=== PATIENT | female | born 2000 | race Caucasian/White ===

== ENCOUNTER 2021-01-31 12:58 | Outpatient (CLI) | payer BC, SELFPAY ==
--- NOTE | ~2021-01-31 | US_ITS ---
EXAMINATION: US OB /maternal detail EXAM DATE: 01/31/2021 13:41 INDICATION: anatomy scan. 2nd trimester. TECHNIQUE: Pelvic obstetrical transabdominal sonogram was performed by a technologist. There are mu ltiple grayscale and Doppler images available for interpretation. There are no earlier studies of th is gestation for comparison. FINDINGS: There is a single fetus identified in variable presentation with a heart rate of 140 beats per minute. The placenta is located in the fundal position. There is no sonographic evidence of retr oplacental hemorrhage identified. There is subjectively expected amount of amniotic fluid. BIOMETRIC DATA: Biparietal diameter (BPD): 4.4 cm ----------------> 19 weeks 1 day. Head circumference (HC): 16.6 cm ----------------> 19 weeks 2 days. Abdominal circumference (AC): 14.5 cm ----------> 19 weeks 6 days. Femur length (FL): 3.0 cm --------------------------> 19 weeks 1 day. These measurements are concordant. HC/AC ratio is 1.14 (The 5th -- 95th percentile range is 1.08-1.26. Estimated weight is 294 g +/- 44 g. This is the 25th percentile when the currently reported cl inical gestation age 19 weeks 6 days, clinical estimated date of delivery (FABIAN-OPE) 06/21/2021 is used . estimated gestational age based on measurements from this exam is 19 weeks 3 days, with an es timated date of delivery (FABIAN-AUA) 06/24. ANATOMIC SURVEY: The following anatomy is identified and is sonographically normal in appearance: Cerebral ventricles Cerebellum Cisterna magna Cavum septum callosum Nuchal fold CTL-spine Four-chamber heart Ventricular outflow tracts Diaphragm Stomach Kidneys Bladder Three-vessel cord Cord insertion Extremities Nose/lips IMPRESSION: 1. Single fetus in variable presentation with heart rate 140 beats per minute. 2. Estimated weight of 294 grams, 25th percentile using the currently reported clinical gestat ion age of 19 weeks 6 days, FABIAN(OPE) 06/21. 3. Normal anatomic survey. Reviewed, dictated and finalized at location G. IMPRESSION: 1. Single fetus in variable presentation with heart rate 140 beats per minute. 2. Estimated weight of 294 grams, 25th percentile using the currently re ported clinical gestation age of 19 weeks 6 days, FABIAN(OPE) 06/21. 3. Normal anatomic survey.
== END 2021-01-31 12:59 ==
LOC: MICIMG 13:00
PROVIDERS: Visit Provider Nurse Practitioner
DX: Z36.9 Encounter for antenatal screening, unspecified (principal); Z3A.19 19 weeks gestation of pregnancy
CPT/HCPCS: 76805

== ENCOUNTER 2021-03-28 12:37 | Outpatient (CLI) | payer BC, SELFPAY ==
--- NOTE | ~2021-03-28 | US_ITS ---
US abdomen complete EXAMINATION: US Abdomen Complete INDICATION: Abdominal pain PROCEDURE: Realtime High Resolution abdomen ultrasound. COMPARISON: No prior studies for comparison FINDINGS: Gallbladder within normal limits. No gallstones, pericholecystic fluid, gallbladder wall t hickening or biliary dilatation. Common bile duct measures 3 mm. Liver echotexture within normal limits without focal mass. Pancreas within normal limits. Pancreati c tail is obscured by bowel gas. Spleen is unremarkeable. There is mild right hydronephrosis. No gabo al mass or stone identified. Right kidney measures 10.8 cm. Left kidney measures 9.5 cm. Visualized aspects of the aorta and IVC are within normal limits. Portal vein is patent. No sonograph ic Justin's sign indicated by the technologist. IMPRESSION: 1: Mild right hydronephrosis. Reviewed, dictated and finalized at location A.
--- NOTE | ~2021-03-28 | US_ITS ---
EXAMINATION: US OB follow up DATE: 03/28/2021 13:17 INDICATION: Abdominal pain during second trimester TECHNIQUE: Real-time ultrasound of the pelvis was performed. The interpreting radiologist was not pre sent for the study. COMPARISON: 01/31/2021 FINDINGS: There is a single living fetus in vertex presentation. The placenta is posterior/fundal. Fe daisy cardiac activity and movement are noted. heart rate is 154 beats per minute (bpm). Th e amniotic fluid index is 12.4 cm which is normal. The following biometric data were obtained: Biparietal diameter (BPD): 7.0 cm; head circumference (HC): 25.5 cm; abdominal circumference (AC): 21 .8 cm; femur length (FL): 5.1 cm. These measurements are concordant. Estimated weight is 1007 g +/- 151 g, which correlates with the 12th percentile when 06/21/2021 is used as estimated date of delivery. As single measurements, these parameters are each equal to the following estimated gestational ages w ith ranges of +/- 2 standard deviations: BPD: 28 weeks 2 days ( 26 weeks 0 days - 30 weeks 3 days). HC: 27 weeks 5 days ( 25 weeks 5 days - 29 weeks 6 days). AC: 26 weeks 2 days ( 24 weeks 1 days - 28 weeks 4 days). FL: 27 weeks 3 days ( 25 weeks 2 days - 29 weeks 3 days). estimated gestational age based solely on measurements from this exam is 27 weeks 3 days +/- 1 weeks 6 days. IMPRESSION: 1. Single living fetus in vertex presentation. 2. Normal amniotic fluid index. 3. Estimated weight is 1007 g +/- 151 g, which correlates with the 12th percentile when 06/21/20 21 is used as estimated date of delivery. Reviewed, dictated and finalized at location B. IMPRESSION: 1. Single living fetus in vertex presentation. 2. Normal amniotic fluid index. 3. Estimated weight is 1007 g +/- 151 g, which correlates with the 12th p ercentile when 06/21/2021 is used as estimated date of delivery.
== END 2021-03-28 12:38 ==
LOC: MICIMG 12:38
PROVIDERS: PCP Physician Assistant; Visit Provider Physician Assistant
DX: O99.891 Other specified diseases and conditions complicating pregnancy (principal); R10.11 Right upper quadrant pain; Z3A.25 25 weeks gestation of pregnancy; N13.30 Unspecified hydronephrosis
CPT/HCPCS: 76700; 76816

== ENCOUNTER 2021-06-11 22:40 | Inpatient (IN) | payer BC, SELFPAY ==
[2021-06-12] VITALS (161 sets, daily range): BP systolic 80–142; BP diastolic 33–112; PULSE 72–146; RESP 18–20; TEMP 36.3–38.1; O2SAT 94–100; BMI 34.5
--- NOTE | 2021-06-12 01:21 | LDADM ---
This patient, Kristie Zepeda, was admitted to Labor/Delivery/Recovery 106 on 06/11/21 at 22:40. Plans for labor, pain management and were discussed with patient. Patient/family oriented to hospital policies and general routines including ID bracelet, bed and alarms, visiting hours, pain management, procedures, bathroom and other care routines, personal items, smoking policy, room service/diet and guest tray routines, security routines, and visiting hours. Patient/Family are encouraged to report perceived risks to care and to ask questions if they do not understand what they are told or what they should do. See OBIX for further documentation.
[2021-06-12] MEDS: LACTATED RINGERS 1,000 ML 125 ML IV CONT ×3 (01:31→09:05)
[2021-06-12] MEDS: AMPICILLIN 2 GM/NS 100 ML 2 GM/100 ML BAG IVPB (01:31)
[2021-06-12 01:36] LABS: Basophils Absolute Auto 0.1 K/mm3 (0.0-0.1); Basophils Percent Auto 0.3 % (0.2-1.2); Eosinophils Percent Auto 0.1 % (0-4.4); Hematocrit 37.1 % (37.0-47.0); Hemoglobin 12.5 g/dL (12.0-15.0); Immature Granulocyte Absolute 0.16 K/mm3 (0.00-0.031); Immature Granulocyte Percent A 0.8 % (0-0.5); Lymphocytes Absolute Auto 1.38 K/mm3 (0.9-3.2); Lymphocytes Percent Auto 7.1 % (18.3-44.2); Mean Corpuscular HGB Conc 33.7 g/dl (32-36); Mean Corpuscular Hemoglobin 29.1 pg (26-34); Mean Corpuscular Volume 86.3 fl (80-100); Mean Platelet Volume 10.1 fl (7.4-10.4); Monocytes Absolute Auto 1.4 K/mm3 (0.1-0.6); Monocytes Percent Auto 7.1 % (2.6-8.5); Neutrophils Absolute Auto 16.4 K/mm3 (1.3-6.7); Neutrophils Percent Auto 84.6 % (45.5-73.1); Platelet Count Result 261 k/mm3 (150-375); Red Cell Distribution Width 13.1 % (11.5-14.5); White Blood Count 19.3 K/mm3 (4.5-10.0)
--- NOTE | 2021-06-12 02:38 | WPDANESEPPF ---
Anes - Initial Pre Proc Eval Procedure: labor epidural Date/Time: 06/12/21 02:38 Surgeon: Arnoldo Herring MD Pre Op Diagnosis: contractions Patient Data Age: 21 Gender: F Height: 1.73 m Weight: 103 kg Last Vital Signs Temp 37.8 C H 06/12/21 01:30 Pulse 98 06/12/21 02:33 BP 131/75 06/12/21 02:33 Pulse Ox 100 06/12/21 02:35 Allergies Allergy/AdvReac Type Severity Reaction Status Date / Time No Known Allergies Allergy Verified 05/23/21 13:18 Home Medications Medication Instructions Recorded Confirmed Type PNV cmb#95-ferrous fumarate-FA 1 tablet PO DAILY 05/23/21 05/23/21 History [] ergocalciferol (vitamin D2) 1,250 mcg PO WEEKLY 05/23/21 05/23/21 History [Vitamin D2] ferrous sulfate 325 mg PO DAILY 05/23/21 05/23/21 History Laboratory Tests 06/12/21 06/12/21 01:28 01:28 WBC 19.3 K/mm3 H K/mm3 (4.5-10.0) RBC 4.30 M/mm3 M/mm3 (4.2-5.4) Hgb 12.5 g/dL g/dL (12.0-15.0) Hct 37.1 % % (37.0-47.0) MCV 86.3 fl fl (80-100) MCH 29.1 pg pg (26-34) MCHC 33.7 g/dl g/dl (32-36) RDW 13.1 % % (11.5-14.5) Plt Count 261 k/mm3 k/mm3 (150-375) MPV 10.1 fl fl (7.4-10.4) Immature Gran % (Auto) 0.8 % H % (0-0.5) Neut % (Auto) 84.6 % H % (45.5-73.1) Lymph % (Auto) 7.1 % L % (18.3-44.2) [place] % (Auto) 7.1 % % (2.6-8.5) Eos % (Auto) 0.1 % % (0-4.4) Baso % (Auto) 0.3 % % (0.2-1.2) Lymph # (Auto) 1.38 K/mm3 K/mm3 (0.9-3.2) [place] # (Auto) 1.4 K/mm3 H K/mm3 (0.1-0.6) Eos # (Auto) 0.0 K/mm3 K/mm3 (0-0.3) Baso # (Auto) 0.1 K/mm3 K/mm3 (0.0-0.1) Abs Immat Gran (auto) 0.16 K/mm3 H K/mm3 (0.00-0.031) Absolute Neuts (auto) 16.4 K/mm3 H K/mm3 (1.3-6.7) Absolute Nucleated RBC 0.0 K/mm3 K/mm3 (0.0-0.012) Nucleated RBC % 0.0 % % (0.0-0.2) RPR Pending Patient hx anesthesia problems: none Family hx anesthesia problems: none Results Review: All pre-operative results and documents have been reviewed as part of the pre-operative evaluation. [facility] Family History Family History Other No pertinent family history Social History Social History Years smoked: 1 Smoking status: Former smoker Tobacco type: cigarettes Substance use: former Spiritual care concerns: No Anes - Eval Final PreProcedure Day of Procedure 06/12/21 02:38 Patient weight: obese Heart: regular rate and rhythm Lungs: clear to auscultation and normal air movement Airway: Mallampati scale class II Neurological: alert and oriented ASA classification: II Emergent: no Anesthetic plan: proceed Anesthesia type and monitoring: regional epidural and standard monitoring Results Review: All pre-operative results and documents have been reviewed as part of the pre-operative evaluation. Informed Consent: The patient's anesthetic plan and its attendant risks and benefits were discussed with the patient/family/POA. Questions were solicited and answers provided to the satisfaction of the patient/family/POA.
[2021-06-12] MEDS: AMPICILLIN 1 GM/NS 50 ML 1 GM/50 ML BAG IVPB ×2 (05:30→09:25)
[2021-06-12] MEDS: ONDANSETRON INJ 4 MG/2 ML VIAL IV PUSH (08:39)
--- NOTE | 2021-06-12 10:12 | WPDOBADMIT ---
Obstetrics - Admit Note Admission Note: record reviewed. No pertinent additions to the history and/or any subsequent changes in the physical findings that are not consistent with the expected course of the were found. AROM clear fluid 8-9/100/-2 Additions to the history and/or subsequent changes in the physical findings follow. None.
[2021-06-12] MEDS: OXYTOCIN 30 UNITS/NS 500 ML 30 UNITS/500 ML BAG 999 UNITS IV CONT (10:48)
--- NOTE | 2021-06-12 11:13 | PM.OBPRVD ---
OB - Delivery Note Procedure Delivery date: 06/12/21 Procedure: Intrapartal events: None Delivery monitor: external FHT and external uterine Route of delivery: Delivery repair: vicryl Specimen: Yes Quantitative Blood Loss (ml): 330 Anesthesia type: Epidural Disposition: observation Baby Date of : 06/12/21 Time of : 10:43 Weeks of gestation at delivery: 38 gender: Female Weight (pounds): 6 Weight (ounces): 14 presentation: vertex position: Left Occiput Anterior Placenta delivery description: Spontaneous cord vessel description: 3 Vessels and Clamped/Cut score one minute: 7 score five minutes: 9
[2021-06-12] MEDS: OXYTOCIN 30 UNITS/NS 500 ML 30 UNITS/500 ML BAG 125 UNITS IV CONT (11:21)
[2021-06-12] MEDS: GENTAMICIN 80MG/SOD CHL 50 ML 80 MG/50 ML BAG 100 MG IVPB (11:50)
[2021-06-12] MEDS: IBUPROFEN 600 MG TABLET PO ×2 (12:35→18:55)
[2021-06-12] MEDS: BENZOCAINE 20% AER SPR (*SP) 56 GM CAN 1 SPRAY TOPICAL (12:36)
[2021-06-12] MEDS: WITCH HAZEL 40 PADS 1 PAD TOPICAL (12:36)
--- NOTE | 2021-06-12 13:30 | PC.NURSE ---
Patient transferred to post room #290 per wheelchair. Support person present. Oriented to unit, room, information board, rooming in, admission packet and security measures. Patient verbalizes understanding.
[2021-06-12] MEDS: LANOLIN (LANSINOH) 7.5 GM CREAM 1 APPLIC TOPICAL (17:00)
[2021-06-12] MEDS: DOCUSATE SODIUM 100 MG CAPSULE PO (17:00)
[2021-06-12] MEDS: ACETAMINOPHEN 325 MG TABLET 650 MG PO (18:02)
[2021-06-13] MEDS: IBUPROFEN 600 MG TABLET PO ×3 (04:40→19:05)
[2021-06-13 04:55] LABS: Hematocrit 33.8 % (37.0-47.0); Hemoglobin 11.1 g/dL (12.0-15.0)
[2021-06-13 06:12] LABS: Rapid Plasma Reagin Non-Reactive (NonReactive)
[2021-06-13 07:30] VITALS: BP 115/73; PULSE 84; RESP 16; TEMP 36.6; O2SAT 97
--- NOTE | 2021-06-13 08:10 | PC.NURSE ---
Mother called out for assist with feeding. Mother reports infant is unable to latch without nipple shield. Mother reports pain with feeding. Infant is able to freely thrust tongue past gum ridge and flange both lips. Both nipples have redness and left has a line with blistering and bruising. Nipple care reviewed of lanolin after feedings, warm compresses as needed, gel pads provided and reviewed care and cleaning. Reviewed feeding cues, frequencies, duration of feedings, feeding elimination flow sheet, and signs of adequate intake. Demonstrated stimulation techniques to wake for feeding. Assisted with to breast. Reviewed positioning/alignment in cross cradle, holding breast in ?U? hold and guided asymmetrical latch on. Reviewed rational for each. attempted without nipple shield. Infant is unable to draw nipple in and tends to suck on her tongue not dropping to allow correct latch. Discussed nipple shield use and how shield may assist with latch. Mother is willing to attempt using shield. Reviewed nipple shield precautions and possible complications. Instructions given on application and cleaning of shield. Patient able to return demonstration on proper application of shield. Discussed the need to initiate pumping if continues to nurse with the shield. Patient verbalizes understanding. With shield in place, was able to latch correctly after several attempts. nursed eagerly, with steady draws for short burst and would release nipple then noted sucking his tongue with nipple under tongue. Several times infant latched repeating short bursts and releasing latch. After several minutes, infant began nursing with a steady rhythmical draw and occasional swallowing noted. was able to maintain latch without discomfort to mother. Advised to stimulate to keep awake and nursing effectively for increased intake, increased stimulation and to assist iwth maintaining correct latch. Advised to hold breast during the entire feeding to assist with maintaining deep latch. Reviewed the difference of effective vs ineffective nursing. Suggested mother initiate pumping due to nipple shield use. Mother will states she will pump after next feeding.
[2021-06-13] MEDS: ACETAMINOPHEN 325 MG TABLET 650 MG PO ×3 (09:26→23:49)
[2021-06-13] MEDS: MULTIVIT/MIN/PREN/FOL AC/IRON TABLET 1 TAB PO (09:27)
--- NOTE | 2021-06-13 10:56 | P.PNOB_ITS ---
OB - PN: Subj Subjective Date/time seen: 06/13/21 10:56 doing well today no complaints OB - PN: Obj Data Labs CBC & Chem 7: 06/13/21 04:42 Labs: Laboratory Results - last 24 hr 06/12/21 06/13/21 01:28 04:42 Hgb 11.1 L Hct 33.8 L RPR Non-reactive OB - PN A/P Assessment and Plan (1) (normal spontaneous vaginal delivery): Code(s): O80 - Encounter for full-term uncomplicated delivery Status: Acute Assessment and Plan: continue with pp care. Time Spent With Patient Time: Total time spent is greater than 50% in coordination of care (as documente d) at patient's floor/unit and/or counseling patient: Exam Narrative: ff below umbilicus
--- NOTE | 2021-06-13 11:04 | WPDANLDPN2 ---
Anes-Prog Note L&D Date/Time: 06/13/21 11:04 Comfortable throughout: labor and delivery Neuraxial method: epidural Epidural/Spinal procedure site: clean & non-tender Neuro status: Neuro function grossly intact. Cardiovascular status: normal Respiratory status: normal Airway patency: baseline Mental status: baseline Post-Op hydration status: normal Vital Signs: Last Vital Signs Temp 97.9 F 06/13/21 07:30 Pulse 84 06/13/21 07:30 Resp 16 06/13/21 07:30 BP 115/73 06/13/21 07:30 Pulse Ox 97 06/13/21 07:30 Pain score (VAS): 2 Post-procedural complaints: none Patient feedback: Patient satisfied with anesthetic care.
--- NOTE | 2021-06-13 12:05 | PC.NURSE ---
Mother called out for assist with feeding. Reviewed feeding cues, frequencies, duration of feedings, feeding elimination flow sheet, and signs of adequate intake. Demonstrated stimulation techniques to wake infant for feeding. Assisted with infant to breast. Reviewed positioning/alignment in cross cradle, holding breast in ?U? hold and guided asymmetrical latch on. Reviewed rational for each. With shield in place, infant was able to latch correctly after several attempts. Infant nursed eagerly, with steady draws for short burst and would release nipple. eager to return to breast and more eager this feeding than last. After several minutes, infant began nursing with a steady rhythmical draw and occasional swallowing noted. was able to maintain latch without discomfort to mother. Advised to stimulate to keep awake and nursing effectively for increased intake, increased stimulation and to assist with maintaining correct latch. Advised to hold breast during the entire feeding to assist with maintaining deep latch.
--- NOTE | 2021-06-13 12:35 | PC.NURSE ---
Breast pump provided due to nursing using nipple shield. Instructions given on breast pump care and usage, pumping schedule, nipple care, and collection and storage of breast milk. Encouraged [id number], breast massage and manual expression to stimulate supply. Assessed patient for correct flange size, placement and draw. Patient verbalizes and demonstrates understanding of instructions. Discussed colostrum vs milk supply and mother may not see more than a few drops the first few days, milk should transition in by day 3 and she may see more volume pumped per session. Plan is for mother to pump after each feeding using the nipple shield.
[2021-06-13 15:00] VITALS: BP 109/72; PULSE 81; RESP 16; TEMP 36.9; O2SAT 99
[2021-06-13 19:05] VITALS: BP 116/74; PULSE 74; RESP 18; TEMP 37
--- NOTE | 2021-06-13 19:05 | PC.NURSE ---
Patient viewed the discharge video Mother & Baby Care, The First Two Weeks online. Patient was given the opportunity and encouraged to ask questions. Patient verbalized understanding of information shared and has been given the mother/baby guide for home reference.
[2021-06-14] MEDS: IBUPROFEN 600 MG TABLET PO ×2 (01:50→11:15)
[2021-06-14] MEDS: ACETAMINOPHEN 325 MG TABLET 650 MG PO (07:47)
[2021-06-14 08:15] VITALS: BP 115/82; PULSE 73; RESP 18; TEMP 36.7; O2SAT 100
--- NOTE | 2021-06-14 10:20 | PM.OBPNVD ---
OB - PN: Subj Subjective Date/time seen: 06/14/21 10:20 doing well no complaints OB - PN: Obj Data Labs CBC & Chem 7: 06/13/21 04:42 OB - PN A/P Assessment and Plan (1) (normal spontaneous vaginal delivery): Code(s): O80 - Encounter for full-term uncomplicated delivery Status: Acute Assessment and Plan: d/c home Time Spent With Patient Time: Total time spent is greater than 50% in coordination of care (as documented) at patient's floor/unit and/or counseling patient: Exam Narrative: ff below umbilicus
[2021-06-14] MEDS: MULTIVIT/MIN/PREN/FOL AC/IRON TABLET 1 TAB PO (11:16)
[2021-06-16 09:37] VITALS: BP 122/73; PULSE 84; RESP 20; TEMP 36.9; O2SAT 100
--- NOTE | 2021-06-27 11:31 | PM.OBDSVD ---
DS: Admitting Diagnosis Discharge Date 06/14/21 Admitting Diagnosis labor OB - DS: Summary OB Procedures : Ultrasound OB Procedures Intrapartum: Spontaneous Vag Delivery OB Procedures: : None Time Spent with Patient Time attestation: Total time spent providing and/or coordinating discharge services: DS: Data Data Completed and Pending Completed studies during hospitalization: Pending at discharge 06/16/21 07:48 Surgical [PTH] Routine Discharge Plan Discharge Attending physician on discharge: Arnoldo Herring Discharging Clinician: Arnoldo Herring Patient Disposition: Home, Self-Care Activity: pelvic rest Diet: regular Discharge Instructions: Education: Mom and Baby Guide Given to: Mother Follow-Up: Call your delivering provider's office for an appointment to be seen in: 6 Weeks Mom and baby should come to the [facility] for the follow-up appointment. Appointment Date/Time: June 16, 2021 at 9:00 am What to expect at your follow-up visit: Blood Pressure Check Physical Assessment Call [phone] if you are unable to keep your appointment time. BREAST CARE: * Wear a snug supportive bra. * For engorgement discomfort: Breast Feeding: * Apply warm moist washcloths * Express milk as needed to relieve engorgement * Wear loose clothing Bottle Feeding: * May apply ice packs * For sore nipples: * Identify correct latch-on * Apply warm moist washcloths before and after nursing * Air dry nipples after nursing * May apply Lansinoh cream to nipples EPISIOTOMY/PERINEAL CARE: * Until bleeding stops, use your romeo bottle after urinating * Change your pad frequently throughout the day * You may take sitz baths several times a day (fill your bathtub with warm water and soak for 20 minutes.) Do NOT bathe in the water * No tub baths until seen by your physician - You may shower ACTIVITY: * Rest as much as possible. * Do not exercise or lift anything heavier than your baby (such as laundry or other children.) * Avoid stairs or driving as much as possible. * Do not put anything into the vagina. No douching, tampons, or sexual activity until seen by physician. NOTIFY PHYSICIAN IF YOU HAVE ANY QUESTIONS OR IF ANY OF THE FOLLOWING SYMPTOMS OCCUR: * If your episiotomy or incision becomes red, swollen, or more painful than what you have experienced in the hospital. * If your vaginal bleeding becomes foul smelling. * If your vaginal bleeding becomes more heavy than a period or if your bleeding changes from pink to bright red. However, you may pass an occasional walnut-sized clot once or twice for the first week . * If you experience a sharp, shooting pain in you calves. * If you discover a hard, reddened area on your breast or if you experience flu-like symptoms. DIET: * Eat regular, well-balanced meals. * Drink plenty of fluids daily. If , drink to thirst. Stand Alone Forms: General Discharge Information Follow-up/Referrals: Arnoldo Herring MD [Physician] - Discharge Medications: New norethindrone acetate 5 mg tablet 5 mg PO DAILY Qty: 30 RF: 8 Continued ferrous sulfate 325 mg (65 mg iron) Tablet 325 mg PO DAILY RF: 0 ergocalciferol (vitamin D2) [Vitamin D2] 1,250 mcg (50,000 unit) Capsule 1,250 mcg PO WEEKLY RF: 0 PNV cmb#95-ferrous fumarate-FA [] 28 mg iron- 800 mcg Tablet 1 tablet PO DAILY RF: 0 Date of admission: 06/11/21 22:40 Primary Care Provider: Vivek,Audrey Vazquez Admitting Provider: Arnoldo Herring Attending physician on admission: Arnoldo Herring Condition: Stable
== END 2021-06-14 11:55 | disposition home or self-care (01) | DRG 807 ==
LOC: ANHLDR 06-12 01:27 → ANHOB2 06-12 13:33
PROVIDERS: Admitting Provider Obstetrics & Gynecology; PCP Physician Assistant; Visit Provider Obstetrics & Gynecology
DX: O99.824 Streptococcus B carrier state complicating childbirth (principal); Z37.0 Single live birth; O70.1 Second degree perineal laceration during delivery; O76 Abnormality in fetal heart rate and rhythm complicating labor and delivery; Z3A.38 38 weeks gestation of pregnancy; Z87.891 Personal history of nicotine dependence
CPT/HCPCS: 36415; 85014; 85018; 85025; 86592; 86850; 86900; 86901; 88307; A9270; J0131; J0290; J1580; J2405; J2590; J2795; J7120

== ENCOUNTER 2021-09-18 10:00 | Outpatient (CLI) | payer BC, SELFPAY ==
--- NOTE | ~2021-09-18 | XR_ITS ---
EXAMINATION: XR shoulder RT min 2V DATE: 09/18/2021 10:53 INDICATION: Chronic right shoulder pain. TECHNIQUE: 4 views of right shoulder were obtained. COMPARISON: None. FINDINGS: Bone alignment is normal. No fracture. Joint spaces are well maintained. A calcified right lung nodule is consistent with old granulomatous disease. IMPRESSION: 1. Normal right shoulder. Reviewed, dictated and finalized at location A. BUCKER IMPRESSION: 1. Normal right shoulder.
--- NOTE | ~2021-09-18 | US_ITS ---
EXAMINATION: US breast LT limited HISTORY: Palpable lump 3:00 location of the left breast TECHNIQUE: Limited left breast ultrasound is performed. FINDINGS: There is a 1.9 x 1.1 cm oval, circumscribed, parallel, complex cystic and solid mass with p osterior acoustic enhancement and no internal vascularity at the 3:00 location 4 cm from the nipple. IMPRESSION: Probable galactocele of the left breast corresponding to the palpable abnormality of concern. Continu ed follow-up clinical examination and targeted left breast ultrasound in six months are recommended. BI-RADS category 3, probably benign findings. Reviewed, dictated and finalized at location A. ANGE MECHANIC IMPRESSION: Probable galactocele of the left breast corresponding to the palpable abnormali ty of concern. Continued follow-up clinical examination and targeted left breas t ultrasound in six months are recommended. BI-RADS category 3, probably benign findings.
== END 2021-09-18 10:01 ==
PROVIDERS: Visit Provider Physician Assistant
DX: N60.02 Solitary cyst of left breast (principal); M25.511 Pain in right shoulder; G89.29 Other chronic pain
CPT/HCPCS: 73030; 76642